=== PATIENT | female | born 1980 | race Caucasian/White ===

== ENCOUNTER 2020-04-19 09:30 | Emergency (ER) | payer OTHER ==
[~2020-04-19] VITALS: Ht 172.7 cm; Wt 132.4 kg
[2020-04-19] MEDS ORDERED: METOPROLOL SUCC50 MG PO (09:44)
[2020-04-19] MEDS ORDERED: PREDNISONE20 MG PO (10:41)
== END 2020-04-19 11:10 | disposition home or self-care (01) ==
LOC: ED 09:30
DX: J44.1 Chronic obstructive pulmonary disease with (acute) exacerbation (principal); Z88.0 Allergy status to penicillin; Z79.899 Other long term (current) drug therapy
CPT/HCPCS: 71045; 94640; 99284-25; J7512

== ENCOUNTER 2021-03-01 07:10 | Day surgery (SDC) | payer OTHER ==
[~2021-03-01] VITALS: Ht 172.7 cm; Wt 127.3 kg
--- NOTE | ~2021-03-01 | OR ---
[facility] [address] [facility] [place], [place] [address] Draft DATE OF OPERATION: 03/01/2021 SURGEON: Fortino Ramos DO PROCEDURES: 1. Hysteroscopy. 2. Dilation and curettage with polypectomy. PREOPERATIVE DIAGNOSIS: 1. Abnormal uterine bleeding. 2. Endometrial polyp. POSTOPERATIVE DIAGNOSES: 1. Abnormal uterine bleeding. 2. Endometrial polyp. CABLE COVERER: None. BLOOD LOSS: 5 mL. COMPLICATIONS: None. FINDINGS: Mildly enlarged uterine cavity. Thickened endometrium consistent with menstrual status, currently menstruating. A 1 cm polyp extending from the fundus. Bilateral tubal ostia visualized. No cervical descensus. DESCRIPTION OF PROCEDURE: The patient was taken back to the operating room, where she was placed in dorsal lithotomy and placed under monitored anesthesia care per Anesthesia. A weighted speculum was placed in the vagina. Anterior lip of the cervix was grasped with an Allis clamp and cervix was easily sequentially dilated with Hegar dilators to accommodate 6 mm scope. The scope was introduced. Uterine cavity was surveyed with findings as noted above. Polypectomy was performed with MyoSure Reach device, followed by circumferential curettage of the endometrial cavity. All instrumentation was removed. Excellent hemostasis was noted. The patient was taken to the recovery room in stable and satisfactory condition. PATIENT NAME: KELLEN ONTIVEROS OPERATIVE REPORT DATE OF : 82 REPORT #: [id number] PHYSICIAN: FORTINO RAMOS DO PCP: JONH OMALLEY PA-C REPORT IS CONFIDENTIAL AND NOT TO BE RELEASED WITHOUT AUTHORIZATION [address] [place], [place] [address] Draft DO CATIAN Alatorre/MODL /[id number] Copies: ~ PATIENT NAME: KELLEN ONTIVEROS OPERATIVE REPORT DATE OF : 82 REPORT #: [id number] PHYSICIAN: FORTINO RAMOS DO PCP: JONH OMALLEY PA-C REPORT IS CONFIDENTIAL AND NOT TO BE RELEASED WITHOUT AUTHORIZATION
[~2021-03-01 07:10] MED LIST: METOPROLOL SUCC50 MG PO; PREDNISONE20 MG PO; VENTOLIN HFA18 GM INH
--- NOTE | 2021-03-01 10:17 | NUR ---
03/01/21 1017 Mirna Nash 7932 PT ARRIVED PACU, PT WAKES EASILY AND DENIES PAIN AND NAUSEA. VSS. 1005 O2 REMOVED. 1010 MD AT BEDSIDE TALKING TO PT AND CALLED PER MD. PLAN OF CARE DISCUSSED. VSS.
--- NOTE | 2021-03-02 16:20 | PATH ---
[facility] [address] [place], [place] [address] Signed SPECIMEN(S): A EMC WITH ENDOMETRIAL POLYP SPECIMEN SOURCE: A. EMC WITH ENDOMETRIAL POLYP CLINICAL HISTORY: AUB. Hysteroscopy DC. FINAL PATHOLOGIC DIAGNOSIS: Endometrium and endometrial polyp, curettage: - Late secretory phase endometrium. - Fragments with features compatible with benign endometrial polyp. - Negative for atypical hyperplasia or malignancy. NAL:smn:C2NR MICROSCOPIC EXAMINATION: Histologic sections of all submitted blocks are examined by light microscopy. These findings, together with the gross examination, support the pathologic diagnosis. GROSS DESCRIPTION: The specimen, labeled "HUMBERTO, A.," and designated on the requisition "EMC with endometrial polyp," is received in formalin and consists of victoria-pink tissue fragments with mucus and clot material measuring 3.8 x 2.7 x 0.5 cm in aggregate. Specimen is filtered and entirely submitted in cassettes (A1-A2). AT (under the direct supervision of a pathologist) The Gross Description was prepared using a voice recognition system. The report was reviewed for accuracy; however, sound-alike word errors, addition and/or deletions may occur. If there is any question about this report, please contact Client Services. PERFORMING LABORATORY: The technical component was performed by [facility], [address] [place] [id number] (Continuous Linter Drier Operator: Palmira Gan MD; CLIA# [id number]). Professional interpretation was performed by [facility], [facility], [address] [address] (CLIA# [id number]). Diagnostician: Nancie Laird MD Pathologist Electronically Signed 03/02/2021 PATIENT NAME: KELLEN ONTIVEROS PATHOLOGY DATE OF : 82 REPORT #: [id number] PHYSICIAN: GILMA PATHOLOGY PCP: JONH OMALLEY PA-C REPORT IS CONFIDENTIAL AND NOT TO BE RELEASED WITHOUT AUTHORIZATION [address] [address] Signed Copies: ~ PATIENT NAME: KELLEN ONTIVEROS PATHOLOGY DATE OF : 82 REPORT #: [id number] PHYSICIAN: GILMA PATHOLOGY PCP: JONH OMALLEY PA-C REPORT IS CONFIDENTIAL AND NOT TO BE RELEASED WITHOUT AUTHORIZATION
== END 2021-03-01 10:45 | disposition home or self-care (01) ==
LOC: OPS 07:10 → DS 07:10 → OPS 09:00
PROVIDERS: ATTEND Obstetrics & Gynecology
PROC: 0UDB8ZX Extraction of Endometrium, Via Natural or Artificial Opening Endoscopic, Diagnostic (ICD-10-PCS; principal; 2021-03-01 09:00)
DX: N93.9 Abnormal uterine and vaginal bleeding, unspecified (principal); N84.0 Polyp of corpus uteri; I15.9 Secondary hypertension, unspecified; J45.909 Unspecified asthma, uncomplicated; G47.30 Sleep apnea, unspecified; K21.9 Gastro-esophageal reflux disease without esophagitis; Z87.891 Personal history of nicotine dependence; Z88.0 Allergy status to penicillin
CPT/HCPCS: J0131; J1100; J1885; J2001; J2405; J2704; J3010; J7121

== ENCOUNTER 2021-06-14 05:35 | Day surgery (SDC) | payer OTHER ==
[~2021-06-14] VITALS: Ht 170.2 cm; Wt 138.0 kg
--- NOTE | ~2021-06-14 | OR ---
[facility] [address] [place], [place] [address] Draft DATE OF OPERATION: 06/14/2021 SURGEON: Fortino Ramos, PROCEDURE: Total laparoscopic hysterectomy, bilateral salpingectomy, cystoscopy. PREOPERATIVE DIAGNOSES: Abnormal uterine bleeding, obesity, hypertension, asthma. POSTOPERATIVE DIAGNOSES: Abnormal uterine bleeding, obesity, hypertension, asthma. ABA THERAPIST: Dr. Sims. BLOOD LOSS: 50 mL. COMPLICATIONS: None. FINDINGS: Mildly enlarged uterus, status post tubal ligation with distal tubal remnants including fimbriated ends present bilaterally. Normal-appearing bilateral with out signs of adhesions or endometriosis. No endometriosis lesions noted on pelvic sidewalls or uterosacral ligament. Normal clear-appearing bladder without injury on cystoscopy and bilateral ureteral jets visualized. INDICATIONS: The patient is a 40-year-old female with history of heavy and prolonged uterine bleeding. Ultrasound was performed, which demonstrated possible endometrial polyp. However, after hysteroscopy and polypectomy was performed in February yielding benign findings, bleeding failed to improve. The patient refused medical management of heavy including IUD and strongly desired definitive surgical management. Risks, benefits, and alternatives were reviewed at length and she elected to proceed. DESCRIPTION OF PROCEDURE: The patient was taken to the operating room where she was given Ancef for preoperative prophylaxis as well as heparin 5000 units subcu. She was placed under general PATIENT NAME: KELLEN ONTIVEROS OPERATIVE REPORT DATE OF : 82 REPORT #: [id number] PHYSICIAN: FORTINO RAMOS DO PCP: JONH OMALLEY PA-C REPORT IS CONFIDENTIAL AND NOT TO BE RELEASED WITHOUT AUTHORIZATION [facility] [address] [place], [place] [address] Draft anesthesia and positioned in dorsal lithotomy and prepped and draped in normal sterile fashion. Weighted speculum was placed in the vagina after placement of Medrano catheter. Allis clamp was placed on the cervix in 12 o'clock position and uterus was easily sounded to accommodate a medium-sized VCare uterine manipulator. Uterus sounded to 9 cm. A VCare manipulator was placed without difficulty. All other instrumentation was removed from the vagina. Surgeon's gloves were changed and attention was turned to the abdomen. Infraumbilical incision was made through her prior tubal umbilical incision scar and carried down to the underlying layer of fascia with blunt and sharp dissection. Fascia was grasped with hemostats, elevated and incised with Metzenbaum scissors. Superior lip and inferior lip were each grasped with a stay suture of 0 Vicryl. Peritoneum was then grasped with hemostats and entered sharply with Metzenbaum scissors and confirmed intraabdominal placement. Angie trocar was placed. Abdomen was insufflated with CO2 gas and surveyed with the scope. Left assist trocar was placed in the left lateral abdomen after infiltration of local anesthetic and incision with a scalpel. A 5 mm trocar was placed under direct visualization without complication. In a similar manner on the right lateral abdomen, local anesthetic was in injected. Incision was made with a scalpel 8 mm trocar was placed under direct visualization without difficulty or complication. With Trendelenburg positioning and use of a blunt grasper to retract the bowel, pelvis was thoroughly surveyed with findings as noted above. Right utero-ovarian ligament was then cauterized and cut with LigaSure device followed by left utero-ovarian ligament, also using LigaSure device. Fimbriated end of the right distal tube was grasped and elevated and cauterized and cut along the mesosalpinx using the LigaSure device with tubal remnant removed from the abdomen under direct visualization. In a similar manner, the left fimbriated end was then grasped, elevated, and mesosalpinx was cauterized and cut using LigaSure device and the tubal remnant was removed from the abdomen under direct visualization. Left round ligament was cauterized and cut with LigaSure and then the anterior flap of the broad ligament was dissected down to the cardinal ligament, cauterizing and cut using LigaSure device. This was then carried across the anterior uterus, creating initial development of the bladder flap. Posterior leaf was then developed in a similar manner dissecting down using LigaSure device to cauterize and cut sequentially to the level of the uterosacral ligaments and crossed the midline with excellent visualization of the VCare cup at all times. Uterine vessels were skeletonized and cauterized and cut using LigaSure device and attention was turned to the right side. Right round ligament was cauterized and cut with LigaSure. Anterior leaf of the broad ligament was cauterized and cut down to the level of the cardinal ligaments and then brought across anteriorly on the uterus to join the prior dissection from the opposite side. Attention was then turned to the posterior leaf, which was also dissected down to meet the prior dissection from the opposite side at the level of the uterosacral ligaments. The uterine vessels on the right were then further skeletonized, cauterized, and cut with excellent hemostasis noted throughout the procedure. Colpotomy was performed with PúbliKo harmonic device without difficulty or complication and once free, the uterus and cervix PATIENT NAME: KELLEN ONTIVEROS OPERATIVE REPORT DATE OF : 82 REPORT #: [id number] PHYSICIAN: FORTINO RAMOS DO PCP: JONH OMALLEY PA-C REPORT IS CONFIDENTIAL AND NOT TO BE RELEASED WITHOUT AUTHORIZATION [facility] [address] [place], [place] [address] Draft were delivered as a single unit vaginally. Sterile glove with packing was placed in the vagina. Surgeon's gloves were again changed and attention was again returned to the abdomen. Vaginal cuff was inspected and noted to be hemostatic. This was closed V-Loc suture and the endo-stitch device. Of note, after working from right apex to left apex before completion of locking suture was done, the needle from the suture, but remained within the device. This was removed from the abdomen under direct visualization and remained contained within the device. A new V-Loc suture was brought in and cuff was sutured from left apex toward midline, then back toward the left apex in a running fashion. Suture was cut, leaving tail along and tails of both sutures were tied together using laparoscopic suturing technique. Pelvis was again reinspected and noted to be hemostatic. Abdomen was desufflated. The fascia was closed with 0 Vicryl in a running fashion. Stay sutures were tied at the top of the fascial closure. At the umbilicus, skin was closed with 4-0 Monocryl and cystoscopy was performed. Medrano catheter was removed. Cystoscope was introduced to the bladder with bubble notable in the dome and no evidence of puckering injury or suture visible throughout inspection of the bladder. Attention was turned to the trigone and bilateral ureteral jets were quickly visualized. Cystoscope was removed. Medrano catheter was replaced for removal in PACU. Vaginal cuff was inspected and noted to be intact. All sponge and instrument counts were correct. The patient was taken to recovery room in stable and satisfactory condition. DO CATINA Alatorre/WANDA /[id number] Copies: ~ PATIENT NAME: KELLEN ONTIVEROS OPERATIVE REPORT DATE OF : 82 REPORT #: [id number] PHYSICIAN: FORTINO RAMOS DO PCP: JONH OMALLEY PA-C REPORT IS CONFIDENTIAL AND NOT TO BE RELEASED WITHOUT AUTHORIZATION
[~2021-06-14 05:35] MED LIST changes: +NOVAFERRUM 5050 MG PO; +OSTERA TABLET1 EACH PO; +PRILOSEC OTC20 MG PO; +PROCARDIA XL30 MG PO; +PROCARDIA XL90 MG PO
--- NOTE | 2021-06-14 10:00 | NUR ---
06/14/21 0959 Kala Funes 0951 PATIENT ARRIVES TO PACU, UNRESPONSIVE TO PAIN. ORAL AIRWAY IN PLACE. RESP EVEN AND UNLABORED, MASK AT 10 LITERS. REQUIRES JAW THRUST AT TIMES. 0953 PATIENT OPENS EYES WITH VERBAL STIMULI. ORAL AIRWAY REMOVED BY SHAWN REA. PATIENT HAS SNORING RESP, AND NEEDS FREQUENT REMINDERS TO DEEP BREATHE AND COUGH. PATIENT SLEEPING WHEN NOT STIMULATED.
--- NOTE | 2021-06-14 12:33 | NUR ---
CATHETER REMOVED FROM PATIENT, TOLERATED WELL. PT IS AWAKE AND ALERT. AT BEDSIDE.
--- NOTE | 2021-06-14 12:35 | NUR ---
PT TOLERATING PO FLUIDS WELL, MEAL TRAY ORDERED.
--- NOTE | 2021-06-14 13:13 | NUR ---
PATIENT ASSISTED OOB AND TO BATHROOM. GAIT STEADY TO BATHROOM. VOID WITHOUT DIFFICULTY. VOIDED APPROXIMATELY 800 ML OF CLEAR YELLOW URINE. GAIT STEADY BACK TO ROOM. PATIENT EATING LUNCH. AT BEDSIDE. CALL LIGHT WITHIN REACH.
--- NOTE | 2021-06-15 12:30 | PATH ---
[facility] [address] [place], [place] [address] Signed SPECIMEN(S): A UTERUS, CERVIX, FALLOPIAN TUBES SPECIMEN SOURCE: A. UTERUS, CERVIX, FALLOPIAN TUBES CLINICAL HISTORY: Abnormal uterine bleeding. TLH, BS, cystoscopy. FINAL PATHOLOGIC DIAGNOSIS: Uterus, cervix, and bilateral fallopian tubes, hysterectomy and bilateral salpingectomy: - Cervix: No histopathologic abnormality. - Endometrium: Proliferative endometrium. - Myometrium: No histopathologic abnormality. - Fallopian tubes: No histopathologic abnormality. - No evidence of malignancy. NAL:cml:C2NR MICROSCOPIC EXAMINATION: Histologic sections of all submitted blocks are examined by light microscopy. These findings, together with the gross examination, support the pathologic diagnosis. GROSS DESCRIPTION: The specimen, labeled "TA, uterus, cervix, bilateral fallopian tubes," is received in formalin and consists of a uterus and cervix with and undesignated fallopian tubes. Uterus measures 5.7 x 4.2 x 8.0 cm. The serosal surface is pink-victoria, smooth. The uterus weighs 144 grams. The ectocervix is pink-victoria, smooth and measures 4.2 x 4.4 cm. Sectioning through the cervix reveals pink-red, congested tissue. The endometrial cavity measures 3.3 x 3.3 cm. It is lined with dark red, hemorrhagic and smooth endometrium. Sectioning through the myometrium reveals pink-red, congested and homogenous tissue. No masses or abnormalities are grossly identified. The myometrium measures 2.0 cm in thickness. The myometrium measures up to 0.2 cm in thickness. Both fallopian tubes show fimbriae and violaceous and smooth serosa. The first fallopian tube measures 1.5 cm in length and 0.6 cm in diameter. Second fallopian tube measures 2 cm in length and 0.7 cm in diameter. PATIENT NAME: KELLEN ONTIVEROS PATHOLOGY DATE OF : 82 REPORT #: [id number] PHYSICIAN: GILMA PATHOLOGY PCP: JONH OMALLEY PA-C REPORT IS CONFIDENTIAL AND NOT TO BE RELEASED WITHOUT AUTHORIZATION [facility] [address] [place], [place] [address] Signed Cassette Summary: (A1) Cervix, direct sales representative sections, posterior inked (A2) Endomyometrium, direct sales representative sections (A3) First fallopian tube, direct sales representative sections (A4) Second fallopian tube, entirely submitted JS (under the direct supervision of a pathologist) The Gross Description was prepared using a voice recognition system. The report was reviewed for accuracy; however, sound-alike word errors, addition and/or deletions may occur. If there is any question about this report, please contact Client Services. PERFORMING LABORATORY: The technical component was performed by [email or web address], [address] [place] [id number] (Tuber Helper: Palmira Gan MD; CLIA# [id number]). [email or web address], [address] [place] [id number] (CLIA# [id number]). Diagnostician: Nancie Laird MD Pathologist Electronically Signed 06/15/2021 Copies: ~ PATIENT NAME: KELLEN ONTIVEROS PATHOLOGY DATE OF : 82 REPORT #: [id number] PHYSICIAN: GILMA PATHOLOGY PCP: JONH OMALLEY PA-C REPORT IS CONFIDENTIAL AND NOT TO BE RELEASED WITHOUT AUTHORIZATION
== END 2021-06-14 16:00 | disposition home or self-care (01) ==
LOC: DS 05:35 → OPS 05:35 → DS 06:45 → OPS 16:00
PROVIDERS: ATTEND Obstetrics & Gynecology
PROC: 0UT94ZZ Resection of Uterus, Percutaneous Endoscopic Approach (ICD-10-PCS; principal; 2021-06-14 06:45)
PROC: 0UT74ZZ Resection of Bilateral Fallopian Tubes, Percutaneous Endoscopic Approach (ICD-10-PCS; 2021-06-14 06:45)
DX: N93.9 Abnormal uterine and vaginal bleeding, unspecified (principal); I10 Essential (primary) hypertension; J45.909 Unspecified asthma, uncomplicated; E66.01 Morbid (severe) obesity due to excess calories; Z68.42 Body mass index [BMI] 45.0-49.9, adult; Z87.891 Personal history of nicotine dependence; Z88.1 Allergy status to other antibiotic agents
CPT/HCPCS: 00840; J0131; J0690; J1100; J1170; J1200; J1644; J1885; J2001; J2250; J2405; J2704; J3010; J7121

== ENCOUNTER 2021-09-06 10:31 | Emergency (ER) | payer OTHER ==
[~2021-09-06] VITALS: Ht 170.2 cm; Wt 135.9 kg
[2021-09-06] MEDS ORDERED: PREDNISONE20 MG PO (12:28)
[2021-09-06] MEDS ORDERED: LISINOPRIL10 MG PO (12:28)
[2021-09-06] MEDS ORDERED: PULMICORT FLE180 MCG INH (12:28)
--- NOTE | 2021-09-06 15:38 | EKG ---
[facility] [address] [facility] [place] [address] Signed Sinus tachycardia Nonspecific ST and T wave abnormality Abnormal ECG When compared with ECG of 12-JUN-2021 10:06, Nonspecific T wave abnormality has replaced inverted T waves in Anterior leads Nonspecific T wave abnormality, worse in Lateral leads Confirmed by ANDERS DOVER MD ([id number]) on 09/06/2021 3:38:09 PM Electronically Signed By: ANDERS DOVER MD 09/06/21 1538 PATIENT NAME: KELLEN ONTIVEROS Electrocardiogram DATE OF : 82 PHYSICIAN: ANDERS DOVER MD REPORT #: [id number] REPORT IS CONFIDENTIAL AND NOT TO BE RELEASED WITHOUT AUTHORIZATION
== END 2021-09-06 12:55 | disposition home or self-care (01) ==
LOC: ED 10:31
DX: J45.901 Unspecified asthma with (acute) exacerbation (principal); T46.1X5A Adverse effect of calcium-channel blockers, initial encounter; J44.9 Chronic obstructive pulmonary disease, unspecified; I10 Essential (primary) hypertension; Z87.891 Personal history of nicotine dependence; Z88.0 Allergy status to penicillin; Z79.899 Other long term (current) drug therapy
CPT/HCPCS: 93005; 93010; 94640; 99284-25; J7512